=== PATIENT | male | born 1995 | race Caucasian/White ===

== ENCOUNTER 2023-08-13 07:41 | Emergency (ER) | payer OTHER ==
[~2023-08-13] VITALS: Ht 175.3 cm; Wt 80.5 kg
[2023-08-13 10:34] VITALS: BP 136/77; TEMP 97.1; O2SAT 97
== END 2023-08-13 11:41 | disposition home or self-care (01) ==
LOC: M ED 07:41
DX: S43.082A Other subluxation of left shoulder joint, initial encounter (principal); Y92.9 Unspecified place or not applicable; Y93.9 Activity, unspecified; Y99.0 Civilian activity done for income or pay

== ENCOUNTER → 2023-10-22 | Outpatient (CLI) | payer OTHER ==
[~2023-10-22] MED LIST: ISOVUE-300 61% 100ML VIAL As Ordered ONE; LIDOCAINE 1% MDV 20ML VIAL As Ordered ONE; PROHANCE 279.3MG/ML 5ML VIAL As Ordered ONE
== END ==
LOC: M RAD 06:27
PROVIDERS: ATTEND Physician Assistant
DX: M25.512 Pain in left shoulder (principal); S46.012A Strain of muscle(s) and tendon(s) of the rotator cuff of left shoulder, initial encounter; X58.XXXA Exposure to other specified factors, initial encounter; Y92.9 Unspecified place or not applicable; Y93.9 Activity, unspecified
CPT/HCPCS: 23350; 73223; 77002; A9576; Q9967

== ENCOUNTER 2024-01-23 09:06 | Emergency (ER) | payer OTHER ==
[~2024-01-23] VITALS: Ht 175.3 cm; Wt 80.3 kg
[2024-01-23] MEDS: KETOROLAC 30 MG/ML 1ML VIAL IV ONE (09:53)
[2024-01-23] MEDS: MORPHINE 4 MG/ML 1ML VIAL IV ONE (09:54)
[2024-01-23 11:39] VITALS: BP 117/66; TEMP 97.6; O2SAT 98
== END 2024-01-23 11:41 | disposition home or self-care (01) ==
LOC: M ED 09:06
DX: S43.085A Other dislocation of left shoulder joint, initial encounter (principal); Y92.9 Unspecified place or not applicable; Y93.9 Activity, unspecified; Y99.0 Civilian activity done for income or pay
CPT/HCPCS: 23650; 73020; 73030; 96374; 96375; 99284; J1885